=== PATIENT | female | born 1975 | race Caucasian/White ===

== ENCOUNTER 2017-01-24 19:02 | Emergency (ER) | payer OTHER ==
[2017-01-24 20:41] LABS: SPECIFIC GRAVITY 1.015 (1.001-1.030); URINE BILIRUBIN NEGATIVE (NEGATIVE); URINE BLOOD NEGATIVE (NEGATIVE); URINE GLUCOSE (UA) NEGATIVE (NEGATIVE); URINE LEUKOCYTE ESTERASE NEGATIVE (NEGATIVE); URINE NITRITE NEGATIVE (NEGATIVE); URINE PROTEIN NEGATIVE (NEGATIVE); URINE UROBILINOGEN NORMAL (0-1 mg/dl)
[2017-01-24 20:45] LABS: HCG,QUALITATIVE URINE NEGATIVE
[2017-01-24 20:46] LABS: URINE APPEARANCE CLEAR; URINE COLOR YELLOW
[2017-01-24] MEDS ORDERED: ACETAMINOPHEN 325 MG TABLET ONE (21:57)
[2017-01-24] MEDS ORDERED: IBUPROFEN 600 MG TABLET ONE (21:57)
--- NOTE | 2017-01-24 22:25 | CT ---
Name: CHENTE CASTILLO Exam: Lumbar spine CT without contrast Comparison: 04/21/2015 Clinical history: Chronic low back pain PROCEDURE: Helical CT using multidetector technique was applied to the lumbar spine. No contrast was given. Sagittal axial and coronal reconstructions were obtained. Automated dose reduction technique were utilized. Findings: Vertebral body alignment is within normal limits. There is a 4 mm bone island in the left iliac bone unchanged from the prior exam. There is no lytic or blastic lesion. There is no fracture or suspicious disc space narrowing. There is minimal annular bulging at L2-3, L3-4, L4-5 and L5-S1. There is no central canal stenosis, lateral recess encroachment or foraminal larynx. Perivertebral soft tissues are within normal limits. Impression: 1. No fracture, malalignment or disc space narrowing 2. Very mild annular bulges from L2-3 through L5-S1 without stenosis. 3. No suspicious change from the prior Note: The above report was uploaded to [facility]'s electronic medical records system at 2221 hours.
[2017-01-24] MEDS ORDERED: DEXAMETHASONE 4 MG TABLET ONE (22:36)
== END 2017-01-24 23:00 | disposition home or self-care (01) ==
LOC: ED 19:02
DX: M54.5 Low back pain (principal); W20.8XXA Other cause of strike by thrown, projected or falling object, initial encounter; Y93.E9 Activity, other interior property and clothing maintenance; Y92.008 Other place in unspecified non-institutional (private) residence as the place of occurrence of the external cause
CPT/HCPCS: 81025; 81003; 72131; 99283 ×2; 51798; A9270 ×3